=== PATIENT | male | born 1975 | race Two or more races ===

== ENCOUNTER 2023-07-13 10:39 | Outpatient (CLI) | payer OTHER, SELFPAY | END 2023-07-13 10:40 | disposition home or self-care (01) | LOC: AMB 07-15 11:32 | PROVIDERS: Visit Provider Family Medicine | DX: R04.2 Hemoptysis (principal); R53.81 Other malaise | CPT/HCPCS: A0425; A0429 ==

== ENCOUNTER 2023-07-13 11:09 | Emergency (ER) | payer OTHER, SELFPAY ==
[2023-07-13] VITALS (9 sets, daily range): BP systolic 124–147; BP diastolic 55–69; PULSE 100–118; RESP 24; TEMP 37.4–39.3; O2SAT 97–99; BMI 37.4
--- NOTE | 2023-07-13 11:17 | ED_ITS ---
HPI - General Adult General Chief complaint: Cough <Fly Gill MD - Last Filed: 07/13/23 11:19> Stated complaint: Flu <Fly Gill MD - Last Filed: 07/13/23 11:19> Time Seen by Provider: 07/13/23 11:09 <Fly Gill MD - Last Filed: 07/13/23 11:19> Source: patient <Katerin Chavez MD - Last Filed: 07/13/23 12:02> Limitations: no limitations <Katerin Chavez MD - Last Filed: 07/13/23 12:02> History of Present Illness HPI narrative: This 48-year-old male comes in reporting upper respiratory symptoms that started about 2 weeks ago. He reports cough that sometimes has some blood tinged sputum more recently. He does not report any fevers. He arrives here with normal vital signs except his blood pressure is a bit elevated. He is maintaining sufficient oximetry and is not using accessory muscles for breathing. <Fly Gill MD - Last Filed: 07/13/23 11:19> Complaining of not feeling well for about 2 weeks. He states that he feels fatigued in achy. Has a cough. Denies vomiting. He had diarrhea for the 1st time this morning. For the last 3 days he has not been eating secondary to decreased appetite. No urinary symptoms. Denies chest or abdominal pain. Patient is a resident at [facility], has been exposed influenza there. <Katerin Chavez MD - Last Filed: 07/13/23 12:02> Related Data Home medications: Home Medications Medication Instructions Recorded Confirmed No Known Home Medications 07/13/23 07/13/23 <Fly Gill MD - Last Filed: 07/13/23 11:19> Allergies/adverse reactions: Allergies Allergy/AdvReac Type Severity Reaction Status Date / Time No Known Drug Allergies Allergy Verified 07/13/23 11:08 <Fly Gill MD - Last Filed: 07/13/23 11:19> Review of Systems Status of ROS: Reports: 10 or more systems reviewed and unremarkable except as noted in History and below <Fly Gill MD - Last Filed: 07/13/23 11:19> Narrative: Constitutional: No fevers, no weight gain or loss. Eyes: No discharge. No vision changes. HENT: No congestion, no sore throat, no ear pain. Cardiovascular: No chest pain, no palpitations. Respiratory: No shortness of breath, no wheezes. Productive cough. Gastrointestinal: No abdominal pain, no vomiting, no diarrhea. Genitourinary: No dysuria, no hematuria. Musculoskeletal: Normal range of motion. Skin: No rashes, no pruritis. Neurological: No dizziness, weakness, sensory change, speech change. Endo/Heme/Allergies: No bruising or bleeding. No polydipsia. Pysch: no suicidality, no anxiety, no insomnia. All other systems reviewed and are negative. <Fly Gill MD - Last Filed: 07/13/23 11:19> Exam Narrative: Exam Narrative: Constitutional: Well-developed, well-nourished, no acute distress. HEENT: Normocephalic, atraumatic. Neck: Normal range of motion. Nontender. Supple. Heart: Regular. No murmurs. Normal rate. Intact distal pulses. Lungs: Clear to auscultation. No chest discomfort. No wheezes, rhonchi, or rales. Abdomen: Normal bowel sounds. Nontender. No rebound tenderness. Genitalia: Deferred. Back: No midline tenderness. Normal range of motion. Extremities: Normal range of motion. No injury. Skin: Intact. No rash. Warm. No erythema or pallor. Neurologic: No altered sensation. No weakness. Alert and oriented. Psychiatric: No suicidality. No anxiety or depression. No insomnia. Nursing notes and vitals signs are reviewed. <Fly Gill MD - Last Filed: 07/13/23 11:19> Const: Vital Signs, click to edit/add: Vital Signs - 24 hr 07/13/23 11:10 Temperature 101 F H Pulse Rate [Pulse Oximeter] 118 H Respiratory Rate 24 Blood Pressure [Ri ght Upper Arm] 147/69 H Pulse Oximetry 97 Oxygen Delivery Me thod Room Air <Fly Gill MD - Last Filed: 07/13/23 11:19> Vital Signs, click to edit/add: Vital Signs - 24 hr 07/13/23 11:10 Temperature 101 F H Pulse Rate [Pulse Oximeter] 118 H Respiratory Rate 24 Blood Pressure [Ri ght Upper Arm] 147/69 H Pulse Oximetry 97 Oxygen Delivery Me thod Room Air <Katerin Chavez MD - Last Filed: 07/13/23 12:02> Course Vital Signs Vital signs: Initial Vital Signs Temperature 101 F H 07/13/23 11:10 Temperature Source Temporal Artery Scan 07/13/23 11:10 Pulse Rate 118 H 07/13/23 11:10 Respiratory Rate 24 07/13/23 11:10 Blood Pressure 147/69 H 07/13/23 11:10 Blood Pressure Mean 95 07/13/23 11:10 Blood Pressure Position Semi-Fowlers 07/13/23 11:10 Pulse Oximetry 97 07/13/23 11:10 Oxygen Delivery Method Room Air 07/13/23 11:10 Vital Signs Temperature 101 F H 07/13/23 11:10 Pulse Rate 118 H 07/13/23 11:10 Respiratory Rate 24 07/13/23 11:10 Blood Pressure 147/69 H 07/13/23 11:10 Pulse Oximetry 97 07/13/23 11:10 Oxygen Delivery Method Room Air 07/13/23 11:10 Temperature 101 F H 07/13/23 11:10 Pulse Rate 118 H 07/13/23 11:10 Respiratory Rate 24 07/13/23 11:10 Blood Pressure 147/69 H 07/13/23 11:10 Pulse Oximetry 97 07/13/23 11:10 Oxygen Delivery Method Room Air 07/13/23 11:10 <Fly Gill MD - Last Filed: 07/13/23 11:19> Initial Vital Signs Temperature 101 F H 07/13/23 11:10 Temperature Source Temporal Artery Scan 07/13/23 11:10 Pulse Rate 118 H 07/13/23 11:10 Respiratory Rate 24 07/13/23 11:10 Blood Pressure 147/69 H 07/13/23 11:10 Blood Pressure Mean 95 07/13/23 11:10 Blood Pressure Position Semi-Fowlers 07/13/23 11:10 Pulse Oximetry 97 07/13/23 11:10 Oxygen Delivery Method Room Air 07/13/23 11:10 Vital Signs Temperature 101 F H 07/13/23 11:10 Pulse Rate 118 H 07/13/23 11:10 Respiratory Rate 24 07/13/23 11:10 Blood Pressure 147/69 H 07/13/23 11:10 Pulse Oximetry 97 07/13/23 11:10 Oxygen Delivery Method Room Air 07/13/23 11:10 Temperature 101 F H 07/13/23 11:10 Pulse Rate 118 H 07/13/23 11:10 Respiratory Rate 24 07/13/23 11:10 Blood Pressure 147/69 H 07/13/23 11:10 Pulse Oximetry 97 07/13/23 11:10 Oxygen Delivery Method Room Air 07/13/23 11:10 <Katerin Chavez MD - Last Filed: 07/13/23 12:02> Medical Decision Making MDM Narrative Medical decision making narrative: This patient comes in with report of upper respiratory symptoms for the past couple weeks. His cough seems to be worse at night by his report. His exam is rather normal. Nasal pharyngeal swab is obtained and returns negative for COVID, influenza, and RSV. The patient did receive an oral dose of dexamethasone 10 mg. <Fly Gill MD - Last Filed: 07/13/23 11:19> Discharge Plan Discharge Prescriptions: No Action No Known Home Medications <Fly Gill MD - Last Filed: 07/13/23 11:19> Follow Up/Referrals: Provider,Not a Local [Primary Care Provider] - <Fly Gill MD - Last Filed: 07/13/23 11:19>
--- NOTE | 2023-07-13 11:56 | XR_ITS ---
Final Report Patient: TIM FALCON Facility:?[facility] Patient ID:?[id number] Site Patient ID:?[id number]. Site :?[id number] Study:?XRay Chest 2v-07/13/2023 12:33:36 PM Ordering Physician:Georgina Final Report: INDICATION: Cough from the symptoms. TECHNIQUE: PA and lateral chest. COMPARISON: None. FINDINGS: Opacity in the medial posterior left lower lobe most compatible with pneumonia. Right lung clear. Recommend chest x-ray in several weeks to document resolution. Dictated by Boone Osullivan MD @ 07/13/2023 1:10:06 PM Dictated by: Boone Osullivan MD @ 07/13/2023 13:10:10 (Electronic Signature)
[2023-07-13] MEDS: 0.9 % SODIUM CHLORIDE 1000 ml 1,000 ML IV (12:00)
--- NOTE | 2023-07-13 12:15 | ED.GENADULT ---
HPI - General Adult General Chief complaint: Cough Stated complaint: Flu Time Seen by Provider: 07/13/23 11:09 Source: patient Limitations: no limitations History of Present Illness HPI narrative: Complaining of not feeling well for about 2 weeks. He states that he feels fatigued in achy. Has a cough. Denies vomiting. He had diarrhea for the 1st time this morning. For the last 3 days he has not been eating secondary to decreased appetite. No urinary symptoms. Denies chest or abdominal pain. Patient is a resident at [facility], has been exposed influenza there. Related Data Home Medications Medication Instructions Recorded Confirmed No Known Home Medications 07/13/23 07/13/23 Allergies Allergy/AdvReac Type Severity Reaction Status Date / Time No Known Drug Allergies Allergy Verified 07/13/23 11:08 Review of Systems Status of ROS: Reports: 10 or more systems reviewed and unremarkable except as noted in History and below [facility] Social History Smoking Status: Former smoker What tobacco products do you use: cigarettes Smoking quit date/years: <= 15 years ago Do you use any of these nicotine containing products: None How often do you have a drink containing alcohol: never How often do you have six or more drinks on one occasion: Never AUDIT-C Alcohol total score: 0 Non-prescribed substance use: denies use service: No Exam Narrative: Exam Narrative: Well-nourished well-developed patient in no acute distress, appears quite fatigued. Alert and oriented. Answers questions appropriately. Mood and affect are appropriate. Thoughts are goal oriented and rational. No tangential or magical thinking noted. Patient speaks in full sentences without needing to catch his breath. HEENT: Normocephalic atraumatic. Pupils are equally round reactive to light. Extraocular muscles are intact. Conjunctivae are moist without any icterus noted. Moist mucous membranes. Posterior pharynx is normal. Lips are dry and cracked with dried blood outlining them. Cardiovascular: Heart is regular rate and rhythm S1 and S2 are present without any murmurs. Lungs: Clear to auscultation bilaterally no wheezes rhonchi or rales are appreciated. Patient takes deep breaths without any discomfort. Abdomen: Soft and nontender nondistended with normal bowel sounds. Protuberant. Extremities: Bilateral lower extremities are without edema. Delete Skin: Well perfused without any obvious rashes. Const: Vital Signs, click to edit/add: Vital Signs - 24 hr 07/13/23 11:10 07/13/23 12:22 Temperature 101 F H 102.7 F H Pulse Rate [Pulse Oximeter] 118 H Respiratory Rate 24 Blood Pressure [Ri ght Upper Arm] 147/69 H Pulse Oximetry 97 Oxygen Delivery Me thod Room Air Course Course ED Course: IV was established and patient received a L of normal saline and Tylenol. Triple swab is positive for influenza A. Chest x-ray, read by me, did not show any acute infiltrates. Chemistry show hyponatremia with sodium 128, hypocalcemia with a calcium 7.9, hyperbilirubinemia with a total bilirubin of 3 and direct of 0.7, low albumin at 2.7, carbon dioxide low at 14. CBC shows pancytopenia. Upon further discussion patient denies any black or tarry stools, no blood in his stools. States that he is in recovery for alcohol use disorder, last drink was 3-4 months ago. He denies dizziness or lightheadedness. He is not short of breath. He states that he does not see a physician. Lastly, he tells me that he has been drinking multiple very large glasses of water daily in an attempt to feel better in the last few days. After fluid hydration his pulse did go to 99 from 118, blood pressure remained stable. Vital Signs Vital signs: Initial Vital Signs Temperature 101 F H 07/13/23 11:10 Temperature Source Temporal Artery Scan 07/13/23 11:10 Pulse Rate 118 H 07/13/23 11:10 Respiratory Rate 24 07/13/23 11:10 Blood Pressure 147/69 H 07/13/23 11:10 Blood Pressure Mean 95 07/13/23 11:10 Blood Pressure Position Semi-Fowlers 07/13/23 11:10 Pulse Oximetry 97 07/13/23 11:10 Oxygen Delivery Method Room Air 07/13/23 11:10 Vital Signs Temperature 101 F H 07/13/23 11:10 Pulse Rate 118 H 07/13/23 11:10 Respiratory Rate 24 07/13/23 11:10 Blood Pressure 147/69 H 07/13/23 11:10 Pulse Oximetry 97 07/13/23 11:10 Oxygen Delivery Method Room Air 07/13/23 11:10 Temperature 102.7 F H 07/13/23 12:22 Pulse Rate 118 H 07/13/23 11:10 Respiratory Rate 24 07/13/23 11:10 Blood Pressure 147/69 H 07/13/23 11:10 Pulse Oximetry 97 07/13/23 11:10 Oxygen Delivery Method Room Air 07/13/23 11:10 Medications Administered Medications: Discontinued Medications Generic Name Dose Route Start Last Admin Trade Name Will PRN Reason Stop Dose Admin Acetaminophen 1,000 mg 07/13/23 12:17 07/13/23 12:22 Acetaminophen 500 Mg Tablet PO 07/13/23 12:18 1,000 mg ONCE ONE Administration Sodium Chloride 1,000 mls @ 1,000 mls/hr 07/13/23 11:57 07/13/23 12:00 0.9 % Sodium Chloride 1000 Ml IV 07/13/23 12:56 1,000 mls/hr .Q1H LYNDSAY Administration Medical Decision Making MDM Narrative Medical decision making narrative: 48-year-old with influenza a and 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 Multiple laboratory abnormalities noted today. Unfortunate and nothing to compare to as patient tells me that he does not see a doctor. At this time I think it is fine to discharge the patient, given the duration of his symptoms I do not think that Tamiflu would be beneficial at this time. I would like for him to establish care with a primary care provider this coming week to discuss his multiple lab abnormalities. Certainly return to the ED if things are getting worse. Lab Data Lab results reviewed: Yes I reviewed the patient's lab results Labs: Lab Results 07/13/23 07/13/23 Range/Units 11:13 11:50 WBC 5.75 (4.50-11.00) K/uL RBC 3.18 L (4.30-5.90) m/uL Hgb 7.5 L* (13.5-17.5) gm/dL Hct 25.0 L (37.0-53.0) % MCV 79 L (80-100) fL MCH 24 L (26-34) pg MCHC 30 L (32-36) gm/dL RDW Coeff of [place]wey 19.6 H (11.5-15.5) % Plt Count 75 L (140-440) K/uL Neut % (Auto) 83.5 H (42.0-72.0) % Lymph % (Auto) 6.3 L (20-44) % [place] % (Auto) 9.9 (0.0-11.0) % Eos % (Auto) 0.0 (0.0-7.0) % Baso % (Auto) 0.0 (0.0-3.0) % Neut # (Auto) 4.80 (1.7-7.0) K/uL Lymph # (Auto) 0.40 L (0.90-2.90) K/uL [place] # (Auto) 0.60 (0.00-0.90) K/UL Eos # (Auto) 0.00 (0.00-0.50) K/uL Baso # (Auto) 0.00 (0.00-0.30) K/uL Abs Immat Gran (auto) 0.02 (0.00-0.30) K/uL Imm/Tot Granulo (auto) 0.3 % Diff Slide Review Acceptable Review (Acceptable) Sodium 128 L (135-149) mmol/L Potassium 4.0 (3.6-5.1) mmol/L Chloride 103 (96-114) mmol/L Carbon Dioxide 14 L (20-32) mmol/L Anion Gap 11 (7-15) mEq/L BUN 11 (5-24) mg/dL Creatinine 1.0 (0.5-1.5) mg/dL Estimated Creat Clear 78.58 Estimated GFR 93 ml/min Glucose 130 H (60-115) mg/dL Calcium 7.9 L (8.4-10.6) mg/dL Total Bilirubin 3.0 H (0.1-1.5) mg/dL Direct Bilirubin 0.7 H (0.0-0.5) mg/dL AST 55 H (12-35) U/L ALT 26 (4-50) U/L Alkaline Phosphatase 88 (40-150) U/L Total Protein 7.0 (6.0-8.3) g/dL Albumin 2.7 L (3.3-5.0) g/dL SARS-CoV-2 (PCR) Negative SARS-CoV-2 (Negative) Influenza Type A (PCR) POSITIVE PCR FLU A A (Negative) Influenza Type B (PCR) Negative PCR FLU B (Negative) RSV (PCR) Negative PCR RSV (Negative) Discharge Plan Discharge Clinical Impression: Low serum albumin, Influenza A, Hyponatremia, Elevated bilirubin, Hypocalcemia, Pancytopenia Patient Disposition: Home w/ Parent or Adult Condition: Stable Additional Instructions: Patient needs to have an appointment with a primary care provider this coming week to discuss multiple lab abnormalities. Patient is to replace some of the water he has been drinking with Pedialyte or Gatorade. Prescriptions: No Action No Known Home Medications Follow Up/Referrals: Provider,Not a Local [Primary Care Provider] - Stand Alone Forms: [employer] Info Instructions
[2023-07-13] MEDS: ACETAMINOPHEN 500 MG TABLET 1000 MG PO (12:22)
[2023-07-13 12:27] LABS: Immature Granulocytes Abs Auto 0.02 K/uL (0.00-0.30); Immature Granulocytes Pct Auto 0.3 %; Lymphocytes Percent Auto 6.3 % (20-44); Mean Corpuscular HGB Conc 30 gm/dL (32-36); Mean Corpuscular Hemoglobin 24 pg (26-34); Mean Corpuscular Volume 79 fL (80-100); Monocytes Percent Auto 9.9 % (0.0-11.0); Neutrophils Percent Auto 83.5 % (42.0-72.0); RDW Coefficient of Variation % 19.6 % (11.5-15.5); Red Blood Count 3.18 m/uL (4.30-5.90); White Blood Count* 5.75 K/uL (4.50-11.00)
[2023-07-13 12:30] LABS: PCR FLU A POSITIVE PCR FLU A (Negative); PCR FLU B Negative PCR FLU B (Negative); PCR RSV Negative PCR RSV (Negative); SARS PCR* Negative SARS-CoV-2 (Negative)
[2023-07-13 12:38] LABS: Albumin* 2.7 g/dL (3.3-5.0); Chloride* 103 mmol/L (96-114)
[2023-07-13 12:39] LABS: Sodium* 128 mmol/L (135-149)
[2023-07-13 12:41] LABS: Anion Gap 11 mEq/L (7-15); Carbon Dioxide* 14 mmol/L (20-32); Est. Creatinine Clearance* 78.58; Estimated Glomerular Filt Rate 93 ml/min
[2023-07-13 12:42] LABS: Alanine Aminotransferase* 26 U/L (4-50); Alkaline Phosphatase* 88 U/L (40-150); Aspartate Amino Transferase* 55 U/L (12-35); Bilirubin Direct* 0.7 mg/dL (0.0-0.5); Blood Urea Nitrogen* 11 mg/dL (5-24); Calcium* 7.9 mg/dL (8.4-10.6); Glucose* 130 mg/dL (60-115)
[2023-07-13 12:52] LABS: Hemoglobin* 7.5 gm/dL (13.5-17.5); Platelet Count* 75 K/uL (140-440); Slide Review Reflex Yes
[2023-07-13 12:53] LABS: Slide Review Acceptable Review (Acceptable)
--- NOTE | 2023-07-13 12:54 | ED.NURSE ---
Critical hemoglobin of 7.5, notified.
--- NOTE | 2023-07-13 13:22 | ED.NURSE ---
Spoke with Neri at [facility]. She states that there is an outbreak of Influenza A at the treatment facility.
--- NOTE | 2023-07-13 14:06 | ED.NURSE ---
Per Michelle Pitts and Amoxicillin 1000mg TIDx7 days for patient dx pneumonia. Called into [facility] pharmacy, Jack at [facility] aware of findings/medications.
== END 2023-07-13 13:34 | disposition home or self-care (01) ==
PROVIDERS: Emergency Medicine Emergency Medical Services; Emergency Provider Family Medicine
DX: J09.X2 Influenza due to identified novel influenza A virus with other respiratory manifestations (principal); E87.1 Hypo-osmolality and hyponatremia; E80.6 Other disorders of bilirubin metabolism; D61.818 Other pancytopenia
CPT/HCPCS: 36415; 71046; 80048; 80076; 85025; 87631; 99284; A9270; J7030